=== PATIENT | male | born 2000 | race Hispanic/Latino ===

== ENCOUNTER 2021-04-04 10:28 | Emergency (ER) | payer OTHER ==
[~2021-04-04] VITALS: Ht 182.9 cm; Wt 71.4 kg
[2021-04-04] MEDS ORDERED: NS 1,000 ML IV ONE (12:15)
[2021-04-04] MEDS ORDERED: cefTRIAXone SOD 1 GM in D5W MINI-BAG PLUS 50 ML IV ONE (12:15)
[2021-04-04 13:02] LABS: BASO % 0.2 % (0.0-1.0); EOS % 0.1 % (0.0-3.0); HEMATOCRIT 41.3 % (42.0-52.0); HEMOGLOBIN 14.5 g/dl (13.5-17.5); LYMPH # 0.8 10^3/uL (1.5-5.0); LYMPH % 7.6 % (24.0-44.0); MEAN CORPUSCULAR HEMOGLOBIN 32.6 pg (27.0-33.0); MEAN CORPUSCULAR HGB CONC 35.1 g/dl (32.0-36.5); MEAN CORPUSCULAR VOLUME 92.8 fl (80.0-96.0); MONO # 0.8 10^3/uL (0.0-0.8); MONO % 7.2 % (2.0-8.0); NEUTROPHILS # 9.2 10^3/uL (1.5-8.5); NEUTROPHILS % 84.5 % (36.0-66.0); PLATELET COUNT, AUTOMATED 259 10^3/uL (150-450); RED BLOOD COUNT 4.45 10^6/uL (4.30-6.10); WHITE BLOOD COUNT 10.9 10^3/uL (4.0-10.0)
[2021-04-04 13:31] LABS: ALBUMIN 4.1 GM/DL (3.2-5.2); BILIRUBIN,DIRECT 0.2 MG/DL (0.0-0.2); BILIRUBIN,TOTAL 0.7 MG/DL (0.2-1.0); TOTAL PROTEIN 7.9 GM/DL (6.4-8.2)
--- NOTE | 2021-04-04 14:01 | REP ---
INDICATION: L flank pain, hematuria, fever, chills COMPARISON: None. TECHNIQUE: CT Scan of the abdomen and pelvis was performed without intravenous contrast. Sagittal and coronal reconstruction images performed. FINDINGS: Lung bases: Unremarkable. Liver: Grossly unremarkable. Gallbladder: Unremarkable. Spleen: Grossly unremarkable. Adrenals: Normal. Pancreas: Grossly unremarkable.. Kidneys: There is mild left hydronephrosis. The majority of the left ureter is not dilated. However, the distal end of the left ureter is dilated. There is no calculus seen in either kidney or ureter. There is no right hydronephrosis. Small and large bowel: Grossly unremarkable. Free fluid: None. Abdominal aorta: No aneurysm. Adenopathy: None. Appendix: Not inflamed. Osseous structures: Unremarkable. Pelvis: No mass. No bladder calculus seen. The bladder is not well distended. The bladder wall may be diffusely thickened but the appearance could be due to its under distended state. IMPRESSION: No renal, ureteral or bladder calculus. There is mild left hydronephrosis. There is also mild dilatation of the distal left ureter. This could be due to edema from a recently passed stone. Distal left ureteritis and/ or cystitis cannot be excluded. <Electronically signed by Bonifacio Tompkins > 04/04/21 [id number]
[2021-04-04] MEDS ORDERED: SULF1TAB23 PO (14:30)
[2021-04-04 14:41] VITALS: BP 121/77
[2021-04-04 14:46] LABS: GC DNA AMPLIFICATION NEGATIVE (NEGATIVE)
--- NOTE | 2021-04-07 15:02 | ED PDOC ---
Post-Departure Follow-Up radiology report faxed [facility] Jeaneth Ruby MD Apr 07, 2021 15:02
== END 2021-04-04 14:53 | disposition home or self-care (01) ==
LOC: M ED 10:28
DX: N30.01 Acute cystitis with hematuria (principal); Z87.448 Personal history of other diseases of urinary system
CPT/HCPCS: 36415; 74176; 80047; 80076; 81001; 83605; 83690; 85025; 87040; 87088; 87186; 87661; 96360; 99284; J0696

== ENCOUNTER 2021-07-10 16:21 | Emergency (ER) | payer OTHER ==
[~2021-07-10] VITALS: Ht 182.9 cm; Wt 72.2 kg
[~2021-07-10 16:21] MED LIST: SULF1TAB23 PO
[2021-07-10 16:22] VITALS: BP 148/79
[2021-07-10] MEDS ORDERED: IBUP-1114 PO (16:30)
[2021-07-10] MEDS ORDERED: ACET325T43 PO (16:30)
[2021-07-10] MEDS ORDERED: CEPH500C PO (20:48)
[2021-07-10] MEDS ORDERED: CEPHALEXIN 500 MG CAP PO ONE (20:50)
== END 2021-07-10 21:00 | disposition home or self-care (01) ==
LOC: M ED 16:21
DX: J02.9 Acute pharyngitis, unspecified (principal)
CPT/HCPCS: 87880; 99282; U0003

== ENCOUNTER 2022-01-12 11:25 | Emergency (ER) | payer OTHER ==
[~2022-01-12] VITALS: Ht 182.9 cm; Wt 75.3 kg
[2022-01-12 11:25] VITALS: BP 120/79
[~2022-01-12 11:25] MED LIST changes: +ACET325T43 PO; +CEPH500C PO; +IBUP-1114 PO
[2022-01-12] MEDS ORDERED: LIDOCAINE 1% MDV 50ML VIAL As Ordered ONE (12:54)
[2022-01-12] MEDS ORDERED: LIDOCAINE 1% MDV 20ML VIAL SC ONE (12:55)
== END 2022-01-12 13:41 | disposition home or self-care (01) ==
LOC: M ED 11:25
DX: S61.011A Laceration without foreign body of right thumb without damage to nail, initial encounter (principal); W25.XXXA Contact with sharp glass, initial encounter; Y92.009 Unspecified place in unspecified non-institutional (private) residence as the place of occurrence of the external cause; Y93.9 Activity, unspecified; Y99.9 Unspecified external cause status

== ENCOUNTER 2022-11-26 08:32 | Day surgery (SDC) | payer OTHER ==
[~2022-11-26] VITALS: Ht 182.9 cm; Wt 70.3 kg
[~2022-11-26 08:32] MED LIST changes: +PANT40TA29 PO; +TERB250T91 PO; +ceFAZolin SOD 2 GM in IV 1 EA IV ONE
[2022-11-26] MEDS ORDERED: EMLA CREAM 5GM TUBE (LIDOCAINE/PRILOCAINE) TOP PRN (08:45)
[2022-11-26] MEDS ORDERED: LR 1,000 ML IV SCH (08:45)
[2022-11-26] MEDS ORDERED: LIDOCAINE 1% SDV 5ML VIAL SC PRN (08:45)
[2022-11-26] MEDS ORDERED: BUPIVACAINE HCL 0.5% 30ML VIAL As Ordered ONE (08:54)
[2022-11-26] MEDS ORDERED: LIDOCAINE 1% MDV 20ML VIAL As Ordered ONE (08:54)
[2022-11-26] MEDS ORDERED: ONDANSETRON 4MG 2ML VIAL As Ordered ONE (08:55)
[2022-11-26] MEDS ORDERED: fentaNYL 100 MCG/2 ML INJECTION As Ordered ONE (08:55)
[2022-11-26] MEDS ORDERED: MIDAZOLAM INJ 2MG/2ML VIAL As Ordered ONE (08:55)
[2022-11-26] MEDS ORDERED: KETOROLAC 60MG 2ML VIAL As Ordered ONE (08:55)
[2022-11-26] MEDS ORDERED: propofoL 200 MG/20 ML VIAL As Ordered ONE (08:55)
[2022-11-26] MEDS ORDERED: LIDOCAINE 2% 100MG/5ML SDV (FOR ANES.) As Ordered ONE (08:55)
[2022-11-26] MEDS ORDERED: ACETAMINOPHEN 1000MG 100ML IV BAG As Ordered ONE (08:55)
[2022-11-26 11:17] VITALS: BP 116/75
== END 2022-11-26 11:29 | disposition home or self-care (01) ==
LOC: M SDC 08:32
PROVIDERS: ATTEND Podiatrist Foot & Ankle Surgery
DX: M21.611 Bunion of right foot (principal); K21.9 Gastro-esophageal reflux disease without esophagitis; Z79.899 Other long term (current) drug therapy
CPT/HCPCS: 28292; 88300; 97116; 97161; C1713; J0131; J0690; J1100; J1885; J2250; J2405; J3010; S0020

== ENCOUNTER 2023-01-12 17:28 | Emergency (ER) | payer OTHER ==
[~2023-01-12] VITALS: Ht 182.9 cm; Wt 78.3 kg
[~2023-01-12 17:28] MED LIST changes: -ceFAZolin SOD 2 GM in IV 1 EA IV ONE
[2023-01-12] MEDS ORDERED: IBUP-1022 (17:35)
[2023-01-12] MEDS ORDERED: LIDO15SO PO (19:03)
[2023-01-12] MEDS ORDERED: NAPR-837 PO (19:03)
[2023-01-12] MEDS ORDERED: LIDOCAINE VISCOUS 2% SOLN 15ML UDC SS ONE (19:05)
[2023-01-12 19:11] VITALS: BP 136/90
== END 2023-01-12 19:25 | disposition home or self-care (01) ==
LOC: M ED 17:28
DX: J02.9 Acute pharyngitis, unspecified (principal); Z87.442 Personal history of urinary calculi
CPT/HCPCS: 87880; 99283; J1100

== ENCOUNTER 2023-07-04 15:01 | Emergency (ER) | payer OTHER ==
[~2023-07-04] VITALS: Ht 182.9 cm; Wt 72.7 kg
[~2023-07-04 15:01] MED LIST changes: +IBUP-1022; +LIDO15SO PO; +NAPR-837 PO
[2023-07-04] MEDS ORDERED: CYCL5TAB (15:12)
[2023-07-04 15:48] LABS: BASO % 0.5 % (0.0-1.0); EOS % 0.3 % (0.0-3.0); HEMATOCRIT 40.5 % (42.0-52.0); HEMOGLOBIN 14.4 g/dl (13.5-17.5); LYMPH # 0.9 10^3/uL (1.5-5.0); LYMPH % 14.2 % (24.0-44.0); MEAN CORPUSCULAR HEMOGLOBIN 32.4 pg (27.0-33.0); MEAN CORPUSCULAR HGB CONC 35.6 g/dl (32.0-36.5); MEAN CORPUSCULAR VOLUME 91.2 fl (80.0-96.0); MONO # 0.3 10^3/uL (0.0-0.8); MONO % 5.2 % (2.0-8.0); NEUTROPHILS % 79.5 % (36.0-66.0); PLATELET COUNT, AUTOMATED 270 10^3/uL (150-450); RED BLOOD COUNT 4.44 10^6/uL (4.30-6.10); WHITE BLOOD COUNT 6.3 10^3/uL (4.0-10.0)
[2023-07-04] MEDS ORDERED: PANTOPRAZOLE 40MG VIAL IV ONE (16:10)
[2023-07-04] MEDS ORDERED: METOCLOPRAMIDE INJ 10MG/2ML VIAL IV ONE (16:10)
[2023-07-04] MEDS ORDERED: NS 1,000 ML IV ONE (16:20)
[2023-07-04 17:07] VITALS: BP 114/71; TEMP 98.2; O2SAT 100
[2023-07-04] MEDS ORDERED: ACETAMINOPHEN 500 MG TAB PO ONE (18:15)
[2023-07-04] MEDS ORDERED: PEPC1TAB5 PO (19:17)
[2023-07-04] MEDS ORDERED: ONDA4TAB6 PO (19:17)
== END 2023-07-04 19:37 | disposition home or self-care (01) ==
LOC: M ED 15:01
DX: A08.39 Other viral enteritis (principal); Z87.442 Personal history of urinary calculi; Z79.83 Long term (current) use of bisphosphonates; Z79.1 Long term (current) use of non-steroidal anti-inflammatories (NSAID); Z79.891 Long term (current) use of opiate analgesic
CPT/HCPCS: 80047; 81000; 81015; 85025; 87486; 87581; 87633; 87798; 96361; 96374; 96375; 99284; C9113; J2765

== ENCOUNTER 2024-01-22 13:31 | Emergency (ER) | payer OTHER ==
[~2024-01-22] VITALS: Ht 182.9 cm; Wt 80.9 kg
[~2024-01-22 13:31] MED LIST changes: +CYCL5TAB; -LIDO15SO PO; +LIDO15SO8 PO; +ONDA4TAB6 PO; +PEPC1TAB5 PO
[2024-01-22] MEDS ORDERED: MELA5TAB58 (13:39)
[2024-01-22] MEDS ORDERED: LIDO5DIS41 TD (15:05)
[2024-01-22] MEDS ORDERED: NAPR500T6 PO (15:05)
[2024-01-22] MEDS ORDERED: CYCL-707 PO (15:05)
[2024-01-22] MEDS: KETOROLAC 60MG 2ML VIAL IM ONE (15:09)
[2024-01-22 15:18] VITALS: BP 121/86; TEMP 97.6; O2SAT 98
== END 2024-01-22 15:34 | disposition home or self-care (01) ==
LOC: M ED 13:31
DX: S23.3XXA Sprain of ligaments of thoracic spine, initial encounter (principal); T50.Z95A Adverse effect of other vaccines and biological substances, initial encounter; Y92.9 Unspecified place or not applicable; Y93.9 Activity, unspecified; Y99.9 Unspecified external cause status; F10.10 Alcohol abuse, uncomplicated; Z79.899 Other long term (current) drug therapy
CPT/HCPCS: 96372; 99284; J1885

== ENCOUNTER 2025-04-21 15:51 | Emergency (ER) | payer OTHER ==
[~2025-04-21] VITALS: Ht 182.9 cm; Wt 89.0 kg
[~2025-04-21 15:51] MED LIST changes: +CYCL-707 PO; -CYCL5TAB; +CYCL5TAB4; +LIDO1ADH93 TD; +MELA5TAB58; +NAPR-1405 PO; +ONDA-282 PO; -ONDA4TAB6 PO
[2025-04-21] MEDS: SUCRALFATE SUSP 1GM/10ML UD PO ONE (19:07)
[2025-04-21] MEDS: PANTOPRAZOLE 40MG TAB PO ONE (19:07)
[2025-04-21 19:10] LABS: BASO # 0.0 10^3/uL (0.0-0.2); BASO % 0.5 % (0.0-1.0); EOS # 0.1 10^3/uL (0.0-0.5); EOS % 2.3 % (0.0-3.0); LYMPH # 2.0 10^3/uL (1.5-5.0); LYMPH % 32.8 % (24.0-44.0); MONO # 0.5 10^3/uL (0.0-0.8); MONO % 7.6 % (2.0-8.0); NEUTROPHILS # 3.4 10^3/uL (1.5-8.5); NEUTROPHILS % 56.5 % (36.0-66.0); PLATELET COUNT, AUTOMATED 266 10^3/uL (150-450)
[2025-04-21 19:41] LABS: ALT/SGPT 28 U/L (7.0-40); AST/SGOT 23 U/L (<34); CALCIUM LEVEL 9.0 MG/DL (8.5-10.1); CARBON DIOXIDE LEVEL 26 MMOL/L (20-31); CHLORIDE LEVEL 106 MMOL/L (98-107); CREATININE FOR GFR 1.01 MG/DL (0.70-1.30); GLOMERULAR FILTRATION RATE > 90.0 (>60); POTASSIUM SERUM 4.3 MMOL/L (3.5-5.1); SODIUM LEVEL 142 MMOL/L (136-145)
[2025-04-21 19:56] VITALS: BP 136/70; TEMP 97.2; O2SAT 99
[2025-04-21] MEDS ORDERED: PROT1TAB2 PO (20:04)
[2025-04-21] MEDS ORDERED: CARA1TAB6 PO (20:04)
== END 2025-04-21 20:10 | disposition home or self-care (01) ==
LOC: M ED 15:51
DX: K29.70 Gastritis, unspecified, without bleeding (principal)

== ENCOUNTER → 2025-08-28 | Outpatient (REF) ==
[~2025-08-28] MED LIST changes: +CARA1TAB6 PO; -IBUP-1022; +IBUP600T42; +PROT1TAB2 PO; +SULF-7 PO; -SULF1TAB23 PO
== END ==
LOC: M PLAIMG 09:19
PROVIDERS: ATTEND Internal Medicine
DX: R52 Pain, unspecified (principal)